=== PATIENT | female | born 1970 | race Caucasian/White ===

== ENCOUNTER 2017-03-20 23:57 | Emergency (ER) | payer MEDICARE, OTHER ==
[~2017-03-20 23:57] MED LIST: ACETAMINOPHEN325 MG PO; ADVAIR 250-501 EACH INH; AMITRIPTYLINE H10 MG PO; BENZTROPINE ME0.5 MG PO; CELEXA20 MG PO; CELEXA40 MG PO; CHANTIX1 EACH PO; CLARITIN10 MG PO; COMBIVENT RESPIM4 GM IH; DEPAKOTE500 MG PO; GLUCOPHAGE1000 MG PO; GLUCOTROL10 MG PO; GLUCOTROL5 MG PO; HYDROCHLOROTHIA25 MG PO; JANUVIA100 MG PO; KLOR-CON-1010 MEQ PO; LANTUS100 UNIT/1 SQ; LASIX40 MG PO; LEVAQUIN750 MG PO; LORTAB 7.5-3251 EACH PO; MAGOX 400400 MG PO; MEDROL4 M1 PO; METOPROLOL TART25 MG PO; NICOTINE TRANSD21 MG TOP; OMEPRAZOLE40 MG PO; PRAVACHOL40 MG PO; PREDNISONE10 MG PO; PRILOSEC40 MG PO; PROAIR HFA8.5 GM IH; PROAIR HFA8.5 GM INH; RISPERDAL4 MG PO; SPIRIVA18 MCG IH; SYMBICORT 16010.2 GM IH; SYNTHROID100 MCG PO; SYNTHROID75 MCG PO; TESSALON PERLE100 MG PO; TRAZODONE HCL50 MG PO; TRILEPTAL150 MG PO; TYLENOL325 MG PO; ZANTAC150 MG PO; ZYRTEC10 MG PO
== END 2017-03-21 04:37 | disposition home or self-care (01) ==
LOC: ER 23:57
DX: L03.116 Cellulitis of left lower limb (principal); L03.115 Cellulitis of right lower limb; R60.0 Localized edema; H66.42 Suppurative otitis media, unspecified, left ear; R06.02 Shortness of breath; F17.210 Nicotine dependence, cigarettes, uncomplicated; F41.9 Anxiety disorder, unspecified; F31.9 Bipolar disorder, unspecified; K21.9 Gastro-esophageal reflux disease without esophagitis; I11.0 Hypertensive heart disease with heart failure; I50.9 Heart failure, unspecified; E11.9 Type 2 diabetes mellitus without complications; Z99.81 Dependence on supplemental oxygen; Z90.49 Acquired absence of other specified parts of digestive tract; Z90.711 Acquired absence of uterus with remaining cervical stump; Z88.1 Allergy status to other antibiotic agents; Z88.5 Allergy status to narcotic agent; Z88.8 Allergy status to other drugs, medicaments and biological substances; Z79.4 Long term (current) use of insulin
CPT/HCPCS: 36415; 96374; J1940

== ENCOUNTER 2017-03-25 23:34 | Emergency (ER) | payer MEDICARE, OTHER | END 2017-03-26 00:44 | disposition home or self-care (01) | LOC: ER 23:34 | DX: N20.0 Calculus of kidney (principal); F31.9 Bipolar disorder, unspecified; F41.9 Anxiety disorder, unspecified; K21.9 Gastro-esophageal reflux disease without esophagitis; I11.0 Hypertensive heart disease with heart failure; I50.9 Heart failure, unspecified; F17.210 Nicotine dependence, cigarettes, uncomplicated; Z90.711 Acquired absence of uterus with remaining cervical stump; Z90.49 Acquired absence of other specified parts of digestive tract; Z79.4 Long term (current) use of insulin; Z79.899 Other long term (current) drug therapy; Z88.1 Allergy status to other antibiotic agents; Z88.5 Allergy status to narcotic agent; Z88.8 Allergy status to other drugs, medicaments and biological substances ==

== ENCOUNTER 2017-03-26 18:21 | Emergency (ER) | payer MEDICARE, OTHER | END 2017-03-26 23:14 | disposition home or self-care (01) | LOC: ER 18:21 | DX: N39.0 Urinary tract infection, site not specified (principal); F31.9 Bipolar disorder, unspecified; F41.9 Anxiety disorder, unspecified; K21.9 Gastro-esophageal reflux disease without esophagitis; I10 Essential (primary) hypertension; E11.9 Type 2 diabetes mellitus without complications; F17.210 Nicotine dependence, cigarettes, uncomplicated; Z90.49 Acquired absence of other specified parts of digestive tract; Z90.711 Acquired absence of uterus with remaining cervical stump; Z99.81 Dependence on supplemental oxygen; Z79.4 Long term (current) use of insulin; Z79.899 Other long term (current) drug therapy; Z88.1 Allergy status to other antibiotic agents; Z88.5 Allergy status to narcotic agent; Z88.8 Allergy status to other drugs, medicaments and biological substances | CPT/HCPCS: J0696 ==

== ENCOUNTER 2017-04-11 02:43 | Emergency (ER) | payer MEDICARE, OTHER | END 2017-04-11 05:13 | disposition home or self-care (01) | LOC: ER 02:43 | DX: R06.02 Shortness of breath (principal); R60.0 Localized edema; R14.0 Abdominal distension (gaseous); K21.9 Gastro-esophageal reflux disease without esophagitis; F41.9 Anxiety disorder, unspecified; F31.9 Bipolar disorder, unspecified; I11.0 Hypertensive heart disease with heart failure; I50.9 Heart failure, unspecified; E78.5 Hyperlipidemia, unspecified; F17.210 Nicotine dependence, cigarettes, uncomplicated; Z90.49 Acquired absence of other specified parts of digestive tract; Z90.711 Acquired absence of uterus with remaining cervical stump; Z99.81 Dependence on supplemental oxygen; Z79.4 Long term (current) use of insulin; Z79.899 Other long term (current) drug therapy; Z88.1 Allergy status to other antibiotic agents; Z88.5 Allergy status to narcotic agent; Z88.8 Allergy status to other drugs, medicaments and biological substances | CPT/HCPCS: 36415 ==

== ENCOUNTER → 2017-04-30 18:28 | Emergency (ER) | payer MEDICARE, OTHER | END | disposition left against medical advice (07) | LOC: ER 18:28 | DX: Z53.21 Procedure and treatment not carried out due to patient leaving prior to being seen by health care provider (principal) ==